=== PATIENT | male | born 1950 | race Hispanic/Latino ===

== ENCOUNTER 2020-10-20 05:59 | Emergency (ER) | payer OTHER ==
[~2020-10-20] VITALS: Ht 172.7 cm; Wt 76.2 kg
[2020-10-20] MEDS ORDERED: TRAMADOL HCL 50 MG TAB PO STA (06:43)
[2020-10-20] MEDS ORDERED: PREDNISONE20 MG PO (07:55)
[2020-10-20] MEDS ORDERED: MOTRIN200 MG PO (07:55)
[2020-10-20 08:03] VITALS: BP 134/71
== END 2020-10-20 07:55 | disposition home or self-care (01) ==
LOC: ER 06:20
DX: M54.42 Lumbago with sciatica, left side (principal); G89.29 Other chronic pain
CPT/HCPCS: 72100; 99282

== ENCOUNTER 2021-01-05 03:34 | Emergency (ER) | payer MEDICARE, OTHER ==
[~2021-01-05] VITALS: Ht 172.7 cm; Wt 76.2 kg
[~2021-01-05 03:34] MED LIST: MOTRIN200 MG PO; PREDNISONE20 MG PO
[2021-01-05] MEDS ORDERED: ONDANSETRON HCL INJ 2MG/ML 2ML 2 MG/ML VIAL IV STA (03:55)
[2021-01-05 04:10] LABS: BASOPHILS % 0.3 % (0.0-1.0); EOSINOPHILS # (AUTO) 0.1 (0.0-0.4); EOSINOPHILS % 0.8 % (0.0-6.0); HEMATOCRIT 38.5 % (38.2-49.6); HEMOGLOBIN 13.1 g/dL (14.0-18.0); LYMPHOCYTES # (AUTO) 1.5 (1.0-3.2); LYMPHOCYTES % 11.4 % (18.0-39.1); MEAN CORPUSCULAR HEMOGLOBIN 29.8 pg (28-32); MEAN CORPUSCULAR VOLUME 87.7 fL (81-99); MONOCYTES # (AUTO) 0.8 (0.2-0.8); MONOCYTES % 5.9 % (4.4-11.3); NEUTROPHILS # (AUTO) 10.8 (2.1-6.9); NEUTROPHILS % 81.3 % (38.7-80.0); PLATELET COUNT 210 x10e3/uL (140-360); RED BLOOD COUNT 4.39 x10e6/uL (4.3-5.7); RED CELL DISTRIBUTION WIDTH 12.2 % (11.7-14.4)
[2021-01-05 04:25] LABS: ALBUMIN 4.2 g/dL (3.5-5.0); ALBUMIN/GLOBULIN RATIO 1.1 (0.8-2.0); ANION GAP 14.8 mmol/L (8-16); CALCIUM 9.1 mg/dL (8.4-10.2); CREATININE, SERUM 1.17 mg/dL (0.72-1.25)
[2021-01-05 04:26] LABS: POTASSIUM 2.8 mmol/L (3.5-5.1)
[2021-01-05] MEDS ORDERED: POTASSIUM CHLORIDE 20 MEQ TAB CR PO STA (04:33)
[2021-01-05 05:06] LABS: CREATINE KINASE MB 0.8 ng/mL (0-5.0)
[2021-01-05] MEDS ORDERED: OLMESARTAN MEDOXOMIL 5 MG TABLET PO ONE (05:15)
[2021-01-05] MEDS ORDERED: OLMESARTAN 20 MG TAB ONE (05:16)
[2021-01-05 05:25] LABS: CLARITY,URINE CLEAR (CLEAR); COLOR,URINE YELLOW (YELLOW); KETONES,URINE NEGATIVE (NEGATIVE); LEUKOCYTE ESTERASE ,URINE NEGATIVE (NEGATIVE); NITRITE,URINE NEGATIVE (NEGATIVE); PROTEIN,URINE DIPSTICK 1+ (NEGATIVE); URINE UROBILINOGEN 0.2 mg/dL (0.2 - 1)
[2021-01-05] MEDS ORDERED: KETOROLAC TROMETHAMINE 30 MG/ML VIAL IV STA (05:29)
[2021-01-05 05:30] LABS: BACTERIA,URINE FEW /HPF; EPITHELIAL CELLS,URINE FEW /LPF; RBC,URINE >50 /HPF (0-5); RENAL EPITHELIAL CELLS,URINE FEW; TRANSITIONAL EPI CELLS,URINE MODERATE
[2021-01-05] MEDS ORDERED: CEPHALEXIN500 MG PO (05:35)
[2021-01-05] MEDS ORDERED: KETOROLAC TROMETHAMINE 30 MG/ML VIAL ONE (05:40)
[2021-01-05 06:20] VITALS: BP 179/100
== END 2021-01-05 06:22 | disposition home or self-care (01) ==
LOC: ER 04:20
DX: M25.512 Pain in left shoulder (principal); R11.0 Nausea; E87.6 Hypokalemia; R94.31 Abnormal electrocardiogram [ECG] [EKG]
CPT/HCPCS: 36415; 71045; 80053; 81001; 82550; 82553; 84484; 85025; 93005; 99284; J1885; J2405